=== PATIENT | female | born 1965 | race Two or more races ===

== ENCOUNTER 2024-12-31 13:01 | Outpatient (RCR) | payer MEDICAID, SELFPAY ==
--- NOTE | 2024-12-31 13:18 | PTNOTE_ITS ---
PT OP Initial Eval Patient Information Outpatient Physical Therapy Treatment Date: 12/31/24 Visit Reasons: Sciatica Left/Right side Medical Diagnosis: M54.31 M54.32 Treatment Dx #1: LBP with radiculopathy Start of Care: 12/31/24 Date of Onset: 6 months Smoking Status Smoking Status: Current some day smoker (Some days she smokes, some days she doesn't. ) Cessation Counseling Provided: KALEB was advised that quitting smoking is the single most important factor to protect the health of themselves and their family. Discussed the benefits of quitting smoking with patient. Encouraged patient to quit smoking and provided Cessation assistance materials and resources. Tobacco Use: Cigarette Years smoked: 25 Are you interested in quitting?: Yes Would you like additional Smoking Cessation Counseling?: No Initial Assessment Subjective: Pt is 59 yr old romanian speaking female who reports pain in the glutes x6 months. Increased pain with prolonged sitting >5 mins and sleeping on her back. Pain limits HH chore tolerance >45 mins. The pain is constant. PMH: DM, x5 Imaging: none Pt goal: less pain Objective: Trunk ArOM: ? B SB 50% of normal with pain ? Extension: 20% with pain around L4-5, L5-S1 ? Flexion: 10 from floor with LBP ? B rotation: 60% with pain to L ? R SLR ROM: 45 deg. L SLR: 50 deg with posterior knee neural tension, LBP ? TTP: moderate paraspinals L5-S1 ? Neuro: R SLR: positive Assessment: Pt presents with high trunk flexion sensitivity and overlying myofascial pain ? and TTP around L5-S1 consistent with ? lower lumbar DDD with radiculopathy. Pt not likely going to benefit from skilled therapy due to severity of ssx with all trunk and LE movements. Pt was taught HEP and may benefit from further diagnostic imaging of L/S. 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
== END 2024-12-31 23:59 | disposition home or self-care (01) ==
LOC: CPTX 13:01
PROVIDERS: PCP Physician Assistant; Referring Provider Physician Assistant; Visit Provider Physician Assistant
DX: M54.16 Radiculopathy, lumbar region (principal); M54.32 Sciatica, left side; M54.31 Sciatica, right side; Z71.6 Tobacco abuse counseling; F17.210 Nicotine dependence, cigarettes, uncomplicated
CPT/HCPCS: 97162